=== PATIENT | female | born 1990 | race Caucasian/White ===

== ENCOUNTER 2017-09-21 21:35 | Emergency (ER) | payer MEDICAID ==
[~2017-09-21] VITALS: Ht 177.8 cm; Wt 119.7 kg
[2017-09-21 21:44] VITALS: BP 139/98
[2017-09-21] MEDS ORDERED: ONDA8TAB9 PO (22:48)
[2017-09-21] MEDS ORDERED: CLIN150C2 PO (22:48)
[2017-09-21] MEDS ORDERED: clindamycin 150mg capsule PO ONE (22:50)
[2017-09-21] MEDS ORDERED: ondansetron 4mg rapidly disintigrating tab PO ONE (22:50)
== END 2017-09-21 22:58 | disposition home or self-care (01) ==
LOC: ER 21:35
DX: S70.361A Insect bite (nonvenomous), right thigh, initial encounter (principal); E28.2 Polycystic ovarian syndrome; Z90.49 Acquired absence of other specified parts of digestive tract; Z88.0 Allergy status to penicillin; Z88.6 Allergy status to analgesic agent; Z88.8 Allergy status to other drugs, medicaments and biological substances; W57.XXXA Bitten or stung by nonvenomous insect and other nonvenomous arthropods, initial encounter; Y93.89 Activity, other specified; Y92.89 Other specified places as the place of occurrence of the external cause; Y99.9 Unspecified external cause status
CPT/HCPCS: 99283